=== PATIENT | female | born 1985 | race Caucasian/White ===

== ENCOUNTER → 2020-10-23 10:08 | Outpatient (CLI) | payer OTHER, SELFPAY ==
[2020-10-23 11:01] LABS: Influenza A - CEPHEID Flu A NEGATIVE (NEGATIVE); Influenza B - CEPHEID Flu B NEGATIVE (NEGATIVE)
[2020-10-23 11:29] LABS: COVID19 -Nasal RAPID Negative (Negative)
== END ==
PROVIDERS: PCP Family Medicine; Referring Provider Physician Assistant; Visit Provider Physician Assistant
DX: R05 Cough (principal); R50.9 Fever, unspecified; Z20.828 Contact with and (suspected) exposure to other viral communicable diseases; R68.89 Other general symptoms and signs
CPT/HCPCS: 87502; 87635

== ENCOUNTER → 2021-07-05 11:30 | Outpatient (CLI) | payer OTHER, SELFPAY ==
[2021-07-05 12:12] LABS: COVID19 -Nasal RAPID Negative (Negative)
== END ==
PROVIDERS: PCP Family Medicine; Visit Provider Physician Assistant
DX: Z20.822 Contact with and (suspected) exposure to COVID-19 (principal); R05 Cough
CPT/HCPCS: 87635